=== PATIENT | female | born 1950 | race Caucasian/White ===

== ENCOUNTER → 2018-10-18 18:27 | Outpatient (REF) | payer OTHER, SELFPAY ==
[2018-10-18 19:21] LABS: HEMOLYSIS < 15 (0-50)
[2018-10-18 19:23] LABS: Add Manual Diff / Slide Review NO; Basophils Absolute Auto 100 /uL (0-100); Basophils Percent Auto 0.7 % (0-2); Eosinophils Absolute Auto 200 /uL (0-450); Eosinophils Percent Auto 2.1 % (2-4); Hematocrit 45.9 % (36-46); Hemoglobin 15.3 g/dL (12.0-16.0); Lymphocytes Absolute Auto 1900 /uL (1100-4500); Lymphocytes Percent Auto 22.7 % (25-40); Mean Corpuscular HGB Conc 33.4 % (30-36); Mean Corpuscular Hemoglobin 31.2 PG (26-34); Mean Corpuscular Volume 93.3 fL (80-100); Monocytes Absolute Auto 700 /uL (0-900); Neutrophils Absolute Auto 5500 /uL (1500-7000); Neutrophils Percent Auto 66.5 % (50-75); Platelet Count 292 X10^3/uL (150-400); Red Blood Cell Count 4.92 X10^6/uL (4.0-5.2); Red Cell Distribution Width 12.6 % (11.6-14.8); White Blood Cell Count 8.3 X10^3/uL (4.5-11.0)
[2018-10-18 19:26] LABS: Alanine Aminotransferase 32 IU/L (9-52); Albumin 4.6 g/dL (3.5-5.0); Albumin Globulin Ratio 1.4 (1.0-2.8); Alkaline Phosphatase 95 U/L (38-126); Aspartate Aminotransferase 29 IU/L (14-36); Bilirubin Total 0.6 mg/dL (0.2-1.3); Blood Urea Nitrogen 12 mg/dL (7-17); Calcium 9.9 mg/dL (8.4-10.2); Carbon Dioxide 26 mmol/L (22-32); Chloride 103 mmol/L (98-107); Cholesterol 233 mg/dL (140-199); Estimated Glomerular Filt Rate > 60.0 mL/min (>60); Globulin 3.2 g/dL (1.7-4.1); Glucose 95 mg/dL (80-110); HDL Cholesterol 101 mg/dL (40-60); LDL Cholesterol Calculated 92 mg/dL (<100); Potassium 4.1 mmol/L (3.4-5.1); Sodium 140 mmol/L (137-145); Total Protein 7.8 g/dL (6.3-8.2); Triglycerides 200 mg/dL (35-150); Uric Acid 4.5 mg/dL (2.5-6.2)
[2018-10-18 19:57] LABS: Thyroid Stimulating Hormone 0.69 uIU/mL (0.47-4.68)
[2018-10-18 20:01] LABS: Rheumatoid Factor 11.3 IU/mL (<12.0)
[2018-10-18 20:17] LABS: Erythrocyte Sedimentation Rate 2 MM/HR (0-20)
[2018-10-21 12:26] LABS: ANA Screen, IFA Negative (Negative)
== END ==
LOC: LAB 18:27
PROVIDERS: PCP Family Medicine Geriatric Medicine; Visit Provider Family Medicine Geriatric Medicine
DX: I73.00 Raynaud's syndrome without gangrene (principal); G89.4 Chronic pain syndrome; M79.7 Fibromyalgia; M79.672 Pain in left foot
CPT/HCPCS: 36415; 80053; 80061; 84443; 84550; 85025; 85651; 86038; 86430

== ENCOUNTER → 2018-11-24 19:54 | Outpatient (REF) | payer OTHER, SELFPAY | LOC: LAB 19:54 | PROVIDERS: PCP Family Medicine Geriatric Medicine; Visit Provider Physician Assistant Medical | DX: L03.019 Cellulitis of unspecified finger (principal) | CPT/HCPCS: 87070; 87075; 87205 ==

== ENCOUNTER → 2019-10-20 12:00 | Outpatient (CLI) | payer OTHER, SELFPAY ==
--- NOTE | 2019-10-20 | DI.MRI.S_ITS ---
PROCEDURE: MR SHOULDER RT WO CON INDICATIONS: pain in right shoulder TECHNIQUE: Noncontrast oblique coronal T2 fast spin echo with fat saturation, oblique sagittal T1 spin echo and T2 fast spin echo with fat saturation, axial T1 spin echo and T2 fast spin echo with fat saturation through the shoulder. COMPARISON: None. FINDINGS: Image quality: Excellent. Rotator cuff: Supraspinatus and infraspinatus tendinopathy with low-grade bursal surface fraying. Teres minor appears intact. Subscapularis tendon appears grossly intact. No atrophy of the rotator cuff muscles. No definite muscle edema seen. Bones and bursae: No bone marrow contusions or fractures. Moderate acromioclavicular joint degeneration. Acromion demonstrates conventional anatomy, without an os acromiale. Mild subacromial-subdeltoid bursitis. Capsule and soft tissues: Labrum: Posterosuperior tear of the labrum is seen. There is large paralabral cyst which extends to the spinoglenoid and suprascapular notch measuring 2.4 cm in the cephalocaudad dimension and approximately 1.9 x 1.0 cm in the axial dimension as seen on image 11/6. Incidental sub-labral foramen. Long head of the biceps tendon intact. The rotator interval appears normal, without fibrosis. Coracohumeral ligament intact. IMPRESSION: Supraspinatus and infraspinatus tendinopathy with low-grade bursal surface fraying. Mild subacromial-subdeltoid bursitis. Posterior and superior tear of the labrum with associated large paralabral cyst, extending to the spinoglenoid notch and suprascapular notch. No rotator cuff muscle atrophy or evidence of denervation edema Dictated by: Omi Muñoz M.D. on 10/20/2019 at 13:37 Approved by: Omi Muñoz M.D. on 10/20/2019 at 14:15
== END ==
PROVIDERS: Referring Provider Family Medicine Geriatric Medicine; Visit Provider Family Medicine Geriatric Medicine
DX: M25.511 Pain in right shoulder (principal); S43.431A Superior glenoid labrum lesion of right shoulder, initial encounter; M75.51 Bursitis of right shoulder; M19.011 Primary osteoarthritis, right shoulder
CPT/HCPCS: 73221

== ENCOUNTER → 2021-07-28 10:02 | Outpatient (CLI) | payer OTHER, SELFPAY ==
--- NOTE | 2021-07-28 | DI.CT.S_ITS ---
PROCEDURE: CT LE LT W CON INDICATIONS: Pain in left ankle and joints of left foot TECHNIQUE: Noncontrast 1-1.5 mm axial sections acquired from above the tibiotalar joint to the bottom of the calcaneus, with coronal and sagittal reformats. COMPARISON: None. FINDINGS: Image quality: Excellent. Bones: There is no acute fracture or dislocation. Ankle mortise is congruent. Osteoarthritic changes are noted in tibiotalar joint, subtalar joint, calcaneocuboid joint and talonavicular joint. Mild osteoarthritic changes at tarsal metatarsal joints and intertarsal joints are also seen. No hindfoot coalition. No suspicious intraosseous lesion. Soft tissues: Mild soft tissue edema and swelling around ankle joint is seen. There is no abnormal soft tissue calcifications. No significant joint effusion is seen. Achilles tendon is intact. Plantar fascia is within normal limits. Extensor, flexor, and peroneus tendons shows no evidence of full-thickness rupture. IMPRESSION: 1. No ankle or foot fracture. Ankle mortise is intact. 2. Mild midfoot and hindfoot joint osteoarthritis. No evidence of osteonecrosis. No suspicious intraosseous lesion. 3. Mild ankle soft tissue swelling and edema. No abnormal soft tissue calcifications. No significant joint effusion. No full-thickness ankle tendon rupture. Dictated by: Erik Rollins M.D. on 07/28/2021 at 12:28 Approved by: Erik Rollins M.D. on 07/28/2021 at 12:48
== END ==
PROVIDERS: PCP Family Medicine; Referring Provider Family Medicine; Visit Provider Family Medicine
DX: M19.072 Primary osteoarthritis, left ankle and foot (principal); M25.572 Pain in left ankle and joints of left foot; M79.89 Other specified soft tissue disorders
CPT/HCPCS: 73700